=== PATIENT | female | born 1985 | race Caucasian/White ===

== ENCOUNTER → 2019-09-03 14:58 | Outpatient (BNVA) | payer BC, SELFPAY | PROVIDERS: PCP Nurse Practitioner Family; Visit Provider Nurse Practitioner Women's Health | DX: Z01.419 Encounter for gynecological examination (general) (routine) without abnormal findings (principal); Z11.3 Encounter for screening for infections with a predominantly sexual mode of transmission; N76.0 Acute vaginitis; F17.210 Nicotine dependence, cigarettes, uncomplicated; B96.89 Other specified bacterial agents as the cause of diseases classified elsewhere | CPT/HCPCS: 87491; 87591; 87661; 88175 ==

== ENCOUNTER → 2020-09-18 11:27 | Outpatient (BNVA) | payer BC, SELFPAY | PROVIDERS: Visit Provider Nurse Practitioner Women's Health | DX: R30.9 Painful micturition, unspecified (principal) | CPT/HCPCS: 81000; 87086 ==

== ENCOUNTER → 2021-07-08 13:53 | Outpatient (BNVA) | payer BC, SELFPAY | PROVIDERS: Visit Provider Nurse Practitioner | DX: R39.9 Unspecified symptoms and signs involving the genitourinary system (principal) | CPT/HCPCS: 81000 ==

== ENCOUNTER → 2021-07-26 14:09 | Outpatient (BNVA) | payer BC, SELFPAY | PROVIDERS: Visit Provider Nurse Practitioner Women's Health | DX: R30.0 Dysuria (principal); R39.15 Urgency of urination | CPT/HCPCS: 81000; 87086 ==

== ENCOUNTER → 2021-07-30 13:13 | Outpatient (BNVA) | payer BC, SELFPAY | PROVIDERS: Visit Provider Nurse Practitioner Women's Health | DX: N89.8 Other specified noninflammatory disorders of vagina (principal); B96.89 Other specified bacterial agents as the cause of diseases classified elsewhere | CPT/HCPCS: 87491; 87591; 87661 ==

== ENCOUNTER → 2021-10-25 11:46 | Outpatient (BNVA) | payer BC, SELFPAY | PROVIDERS: Visit Provider Nurse Practitioner Family | DX: N39.0 Urinary tract infection, site not specified (principal); B37.3 Candidiasis of vulva and vagina | CPT/HCPCS: 81000 ==

== ENCOUNTER → 2022-05-17 09:52 | Outpatient (BNVA) | payer BC, SELFPAY | PROVIDERS: PCP Family Medicine; Visit Provider Family Medicine | DX: Z00.00 Encounter for general adult medical examination without abnormal findings (principal); Z13.220 Encounter for screening for lipoid disorders; R73.09 Other abnormal glucose; R30.0 Dysuria; Z51.81 Encounter for therapeutic drug level monitoring; M79.671 Pain in right foot | CPT/HCPCS: 80053; 80061; 81000; 83036; 85025; 87086 ==

== ENCOUNTER 2024-11-30 23:11 | Emergency (ER) | payer OTHER, SELFPAY ==
--- NOTE | 2024-11-30 23:14 | ECG_ITS ---
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 Measurements Intervals Buena Rate: 72 P: 78 AZ: 165 QRS: 84 QRSD: 94 T: 65 QT: 364 QTc: 398 Interpretive Statements SINUS RHYTHM No previous ECG available for comparison Electronically Signed On 12-01-2024 21:14:55 CDT by Micha Maharaj M.D. [email or web address] [id number]
[2024-11-30 23:16] VITALS: BP 142/95; PULSE 68; RESP 18; TEMP 36.9; O2SAT 98
--- NOTE | 2024-11-30 23:24 | XRR_ITS ---
PROCEDURE INFORMATION: Exam: XR Chest Exam date and time: 11/30/2024 11:49 PM Age: 39 years old Clinical indication: Chest pressure; Chest pain TECHNIQUE: Imaging protocol: Radiologic exam of the chest. Views: 1 view. COMPARISON: CR XR KUB [id number] 01/02/2019 6:42 PM FINDINGS: Lungs: Unremarkable. No consolidation. Pleural spaces: Unremarkable. No pleural effusion. No pneumothorax. Heart/Mediastinum: Unremarkable. No cardiomegaly. Bones/joints: Unremarkable. XR/XR chest 1V portable [id number] IMPRESSION: No acute findings.
--- NOTE | 2024-11-30 23:44 | W.ED.GENADLT ---
HPI - General Adult General: Chief complaint: Airway/Esophagus Foreign Body Stated complaint: CP Time Seen by Provider: 11/30/24 23:40 Source: patient Mode of arrival: ambulatory Limitations: no limitations History of Present Illness: Patient is a 39-year-old female presents to ED today with a complaint of chest pain. Patient states she swallowed her clindamycin capsule around 9 PM this evening before she went to bed. She states shortly after she woke up and felt like the pill was stuck in her esophagus and states she was having pain and burning. Patient states she was able to drink some water/milk and was able to hold this down but pain persisted. She is not having any neck pain. When she swallows, she is not having any foreign body sensation. She states now her chest pain seems to come and go. She is not having any shortness of breath or difficulty breathing. Onset (ago): hour(s) Severity: mild Quality: burning Pain Consistency: intermittent Relieving factors: none Exacerbating factors: none Associated symptoms: Reports chest pain (seems to come and go); Deny dyspnea, nausea, palpitations, syncope or vomiting Treatments prior to arrival: none Related Data Previous Rx's ?Medication ?Instructions ?Recorded clindamycin HCl 300 mg capsule 300 mg PO BID 7 days #14 caps 11/27/24 Allergies Allergy/AdvReac Type Severity Reaction Status Date / Time azithromycin Allergy Nausea Verified 11/30/24 23:20 cefaclor (From Ceclor) Allergy Hives Verified 11/30/24 23:20 Review of Systems Const: Denies: fever(s) ENMT: Denies: throat pain or odynophagia Card: Reports: chest pain (seems to come and go); Denies: palpitations, irregular heart rhythm, edema, swelling of feet/ankles, lightheadedness, syncope, pre-syncope, dyspnea on exertion, orthopnea, leg pain with exertion or acrocyanosis Resp: Denies: dyspnea GI: Denies: abdominal pain, nausea, vomiting, dysphagia or heartburn Musc: Denies: neck pain PFS ED PFSH: Medical History Recurrent vaginitis Patient denies medical problems Denies history of: High Blood Pressure, Diabetes, Stroke, Heart disease, Thyroid problems, Cancer of the colon, breast, uterus, or ovaries. Surgical History History of tubal ligation 03/26/2014- laparoscopic bilateral tubal fulguration by Dr. Neff at [facility]. Surgery in the postoperative course was uncomplicated. History of removal of ovarian cyst diagnostic laparoscopy for pelvic pain in 2000-reports having a left ovarian cyst removed at this time. Family History Mother Diabetes Thyroid disease Family/Other Breast cancer Mother's cousin--dx age unknown Cancer Great Aunt cervical cancer. Denies family history of Colon cancer Ovarian cancer Heart disease Hypercholesteremia Hypertension Uterine cancer Stroke Physical Exam Const: COMMON NORMALS: no acute distress, average body habitus, patient oriented x3, no limitations, healthy appearing, alert and well nourished Neck/C-Spine: GENERAL: Yes normal visual inspection and Yes other ( normal palpation) Chest: COMMONS NORMALS: normal inspection of the chest and normal palpation of entire chest wall Resp: COMMON NORMALS: normal respiratory effort and clear to auscultation bilaterally AUSCULTATION: clear to auscultation bilaterally Cardio: COMMON NORMALS: regular rate and regular rhythm RATE: regular rate RHYTHM: regular rhythm Neuro: COMMON NORMALS: patient oriented x3 SENSORIUM/ORIENTATION: Yes alert Course Vital Signs: Vital signs: Vital Signs Temperature 98.5 F 11/30/24 23:16 Pulse Rate 63 12/01/24 00:50 Respiratory Rate 14 12/01/24 00:50 Blood Pressure 107/75 12/01/24 00:50 Pulse Oximetry 97 12/01/24 00:50 Oxygen Delivery Me thod Room Air 12/01/24 00:50 [facility] - General Adult Medical Decision Making History most likely consistent with some type of pill esophagitis. She is not having any foreign body sensation when swallowing. She can swallow food or water. She states her chest pain has improved while here and is intermittent. Vital signs stable. She is not having any respiratory symptoms. CXR is unremarkable. Patient will be allowed discharge. Discussed conservative therapies for home. If symptoms persist, she may require further evaluation. Medical Records I reviewed the patient's medical records. XR interpretation done by ED provider, pending radiology final review Discharge Plan Discharge Patient Disposition: Home Clinical Impression: Esophagitis Condition: Stable Prescriptions: No Action clindamycin HCl 300 mg capsule 300 mg PO BID 7 Days Qty: 14 0RF Discharge Orders: Discharge ED (Routine); Ordered 12/01/24 Ordered By: Glenny Trejo Referrals: Joe Olivia MD [Primary Care Provider] - Activity Restrictions/Additional Instructions: As we discussed, you may require the use of medications such as Maalox, Gaviscon, Tums, Pantoprazole, Pepcid/Zantac to help with symptoms over the next week. You need to return to the emergency department for worsening chest pain, shortness of breath, difficulty breathing, trouble swallowing, neck pain, or any other concerns you may have. Print Language: Portuguese Coding Level of Care Code ED Caustics Loader for Olinda Courtney
[2024-12-01] MEDS: lidocaine 2% viscous 15 ML, aluminum-mag hydrox-simethicon 30 ML, sucralfate oral liq 1 GM PO (00:02)
[2024-12-01 00:04] VITALS: BP 132/61; PULSE 64; RESP 15; O2SAT 97
[2024-12-01 00:50] VITALS: BP 107/75; PULSE 63; RESP 14; O2SAT 97
== END 2024-12-01 01:19 | disposition home or self-care (01) ==
PROVIDERS: Emergency Provider Physician Assistant; PCP Family Medicine
DX: K20.90 Esophagitis, unspecified without bleeding (principal)
CPT/HCPCS: 71045; 93005; 99284; J9999

== ENCOUNTER → 2024-12-17 09:38 | Outpatient (BNVA) | payer OTHER, SELFPAY | PROVIDERS: PCP Family Medicine; Visit Provider Nurse Practitioner Women's Health | DX: Z01.419 Encounter for gynecological examination (general) (routine) without abnormal findings (principal) | CPT/HCPCS: 87624 ==

== ENCOUNTER → 2024-12-24 12:30 | Outpatient (BNVA) | payer OTHER, SELFPAY | PROVIDERS: PCP Family Medicine; Visit Provider Nurse Practitioner Women's Health | DX: R10.2 Pelvic and perineal pain (principal); D25.9 Leiomyoma of uterus, unspecified | CPT/HCPCS: 76830 ==

== ENCOUNTER → 2025-02-03 14:00 | Outpatient (BNVA) | payer OTHER, SELFPAY | PROVIDERS: PCP Family Medicine; Visit Provider Obstetrics & Gynecology | DX: R87.619 Unspecified abnormal cytological findings in specimens from cervix uteri (principal) | CPT/HCPCS: 81025; 88305 ==

== ENCOUNTER → 2025-04-01 13:56 | Outpatient (BNVA) | payer OTHER, SELFPAY | PROVIDERS: PCP Family Medicine; Visit Provider Orthopaedic Surgery | DX: M25.562 Pain in left knee (principal); M25.561 Pain in right knee | CPT/HCPCS: 73560; 73565 ==

== ENCOUNTER 2025-04-14 09:18 | Outpatient (CLI) | payer OTHER, SELFPAY ==
--- NOTE | 2025-04-14 09:30 | MR_ITS ---
WS: [id number] MRI LEFT KNEE HISTORY: Left knee pain COMPARISON: Radiograph 04/01/2025 Anterior cruciate ligament: Small amount of fluid along the ACL but no full- thickness tear. Posterior cruciate ligament: Intact. Medial collateral ligament: Superficial MCL is intact. The deep meniscal femoral component is small caliber with increased T2 signal may be from a remote sprain injury. No surrounding edema. Posterior lateral corner structures: Intact. Medial menisci: There is a very small amount of fluid associated with the posterior meniscal root. No tear is identified. Lateral meniscus: Intact. Normal signal, size and shape. Extensor mechanism: Distal quadriceps tendon and patellar tendons are intact. Fluid and soft tissue: No joint effusion. Small Infante's cyst. Osseous and articular structures: Patellofemoral compartment: Normal. Medial compartment: Mild narrowing of the medial compartment. Acute medial tibial plateau nondisplaced fracture with a large amount of surrounding edema. Fracture does not seem to extend to the articular surface but through the metaphysis. Fracture extends to the midline and also towards the base of the tibial spines. Marrow signal is in contact with the curvilinear fluid noted involving the posterior medial meniscal root. No there may be very minimal loss of height involving the medial tibial plateau. No displacement. Lateral compartment: Small amount of marrow edema crosses from the medial tibial plateau towards the lateral metaphysis. Minimal narrowing lateral compartment. MR/MR knee LT wo con* [id number] IMPRESSION: 1. Medial tibial plateau fracture with minimal depression. Fracture extends th rough the metaphysis with edema extending slightly across the midline to the la teral tibial metaphysis. 2. Small amount of fluid associated with the posterior medial meniscal root. T his signal abnormality in the meniscal root is in contact with the marrow signa l abnormality. No definite meniscal tear identified. 3. Small amount of fluid along the ACL but no tear. 4. Small Infante's cyst.
== END 2025-04-14 09:19 | disposition home or self-care (01) ==
LOC: RAD 09:19
PROVIDERS: PCP Family Medicine; Visit Provider Orthopaedic Surgery
DX: S82.142A Displaced bicondylar fracture of left tibia, initial encounter for closed fracture (principal); M71.22 Synovial cyst of popliteal space [Baker], left knee; X58.XXXA Exposure to other specified factors, initial encounter
CPT/HCPCS: 73721

== ENCOUNTER → 2025-04-22 15:03 | Outpatient (BNVA) | payer OTHER, SELFPAY | PROVIDERS: PCP Family Medicine; Visit Provider Orthopaedic Surgery | DX: Z01.818 Encounter for other preprocedural examination (principal) | CPT/HCPCS: 36415; 80053; 81001; 85025 ==

== ENCOUNTER → 2025-05-06 08:46 | Outpatient (BNVA) | payer OTHER, SELFPAY | PROVIDERS: PCP Family Medicine; Visit Provider Family Medicine | DX: Z01.818 Encounter for other preprocedural examination (principal) | CPT/HCPCS: 85007; 85027 ==

== ENCOUNTER 2025-05-13 05:47 | Day surgery (SDC) | payer OTHER, SELFPAY ==
[2025-05-13] VITALS (11 sets, daily range): BP systolic 98–143; BP diastolic 65–89; PULSE 61–81; RESP 16–18; TEMP 36.2–36.9; O2SAT 95–100
[2025-05-13 06:01] LABS: OR HCG Qualitative Urine Negative (Negative)
--- NOTE | 2025-05-13 06:49 | P.ANESASSM_ITS ---
Pre-Anesthetic Assessment Height/Weight: Height 1.57 m Weight 61.689 kg Temp Pulse Resp BP Pulse Ox O2 Del Method 98.4 F 78 16 143/78 99 Room Air 05/13/25 06:00 05/13/25 06:00 05/13/25 06:00 05/13/25 06:00 05/13/25 06:00 05/13/25 06:00 Preop Diagnosis: left knee pain Operation Date: 05/13/25 07:00 Proposed Procedures p Left knee arthroscopy with meniscus repair(Left) - Serafin Bowen MD Was Beta Sascha taken within 24 hours: N/A Was Clonidine taken within 24 hours: N/A Last intake: Intake Last Liquid Date 05/12/25 Last Liquid Time 21:30 Last Solid Date 05/12/25 Last Solid Time 21:30 Social Tobacco 1ppd pack(s) per day 15 years pack years Exam alert and oriented x 3 Airway Submandibular: within normal limits Cervical ROM: within normal limits Mallampati: Class I Dentition: full History/ROS No significant history except as noted Pulmonary None reported CV/HEM None reported None reported Hepatic None reported GI None reported Metabolic None reported Musc/skel None reported Neuropsych Anxiety Anesthetic Plan ASA status: 2 Anesthesia: General Risk of > 500 ml blood loss (7ml/kg in children): No Medications/Allergies Home Medications ?Medication ?Instructions ?Recorded ?Confirmed ?Last Taken ?Type norethindrone acetate 5 mg tablet 5 mg PO DAILY 05/13/25 05/12/25 History metronidazole 500 mg tablet 500 mg PO BID 7 days #14 t abs 05/06/25 05/13/25 05/12/25 Rx Allergies Allergy/AdvReac Type Severity Reaction Status Date / Time azithromycin Allergy Nausea Verified 05/12/25 15:27 cefaclor (From Ceclor) Allergy Hives Verified 05/12/25 15:27 Current Medications Generic Name Dose Route Start Last Admin Trade Name Freq PRN Reason Stop Dose Admin Sodium Chloride 1,000 mls @ 30 mls/hr 05/13/25 06:00 05/13/25 06:10 Sodium Chloride 0.9% IV 05/14/25 05:59 30 mls/hr .Q24H DIONE Administration PFSH Anesthesia Medical History Recurrent vaginitis Patient denies medical problems Denies history of: High Blood Pressure, Diabetes, Stroke, Heart disease, Thyroid problems, Cancer of the colon, breast, uterus, or ovaries. Surgical History History of tubal ligation 03/26/2014- laparoscopic bilateral tubal fulguration by Dr. Neff at [facility]. Surgery in the postoperative course was uncomplicated. History of removal of ovarian cyst diagnostic laparoscopy for pelvic pain in 2000-reports having a left ovarian cyst removed at this time. Family History Mother Diabetes Thyroid disease Family/Other Breast cancer Mother's cousin--dx age unknown Cancer Great Aunt cervical cancer. Denies family history of Colon cancer Ovarian cancer Heart disease Hypercholesteremia Hypertension Uterine cancer Stroke Social History Smoking and tobacco/nicotine status: current every day tobacco/nicotine user Female Reproductive History Date of last menstrual period: 05/05/25
--- NOTE | 2025-05-13 07:12 | W.PM.OPSUD ---
Surgery/Procedure H&P Update DATE OF PROCEDURE: May 13, 2025 DATE H&P PERFORMED: 04/22/25 CHANGES TO PREVIOUS DOCUMENTATION: Medical evaluation was done by Dr. Vizcarra on 05/06/2025 PREOP DIAGNOSIS: left knee pain PRIMARY INDICATION FOR PROCEDURE: Internal derangement left knee PLANNED PROCEDURE: Operation Date: 05/13/25 07:00 Proposed Procedures p Left knee arthroscopy with meniscus repair(Left) - Serafin Bowen MD
[2025-05-13] MEDS: BUPivacaine 0.5% INJ 30 mL XX (08:11)
--- NOTE | 2025-05-13 08:19 | P.OP_ITS ---
Operative Report Date of procedure: May 13, 2025 Surgeon: Serafin Bowen MD Procedure: Preoperative diagnosis: Internal derangement of the left knee possible posterior horn medial meniscal tear Postoperative diagnosis: Torn posterior horn medial meniscal tear of left knee Procedure: Diagnostic left knee arthroscopy with partial medial meniscectomy of the posterior horn Surgeon: Serafin Bowen MD Anesthesia: General EBL: None Indications: Monalisa is a 39-year-old white female who is referred to the orthopedic clinic for debilitating left knee pain. Original injury she has tripped over a pallet fell on both knees. She had bilateral knee pain but right knee seem to resolve somewhat. However left knee continue to be painful and difficult. On clinical exam she had positive findings for possible posterior horn medial meniscal tear. Subsequent MRI indicated possible root tear of the posterior horn medial meniscus as well as possible tibial plateau fracture in the area. No other abnormalities/pathology was identified. Patient then offered a diagnostic left knee arthroscopy after failing all conservative measures to try and heal her left knee. All risk benefits treatment alternatives were discussed with her and she was agreeable to this at this time. Procedure: After obtaining her consent patient was taken to the operating room placed on the operative table supine position general anesthetic administered. Once good anesthesia was achieved patient's left leg was placed in a leg schwartz and the foot the bed was dropped. Right leg was padded out appropriately. Left leg was prepped and draped in the usual fashion. After surgical timeout standard anterior medial and lateral portals were made with #11 blade. Camera cannula placed through the lateral portal into her knee was undertaken. Po sterior patella was in good repair. Medial gutter was clear. Medial compartment initially appeared to be normal however probing the posterior horn/1/3 of the medial meniscus a undersurface longitudinal tear was identified. However root was not damaged at this time. Using small hand instruments and mechanical shaver a partial medial meniscectomy was then taken to debride the meniscal tear. Remainder of the medial compartment was in good repair. Intercondylar notch demonstrated an ACL that appeared to be laying quite flat however function of it still was good. Referencing back to the MRI there is no indication of an ACL tear. There is no bleeding into the soft tissues around there are evidence of it recently. Lateral compartment demonstrated normal articular surfaces as well as normal meniscus. Knee was then washed this copious amounts sterile irrigation. Cannulas removed. Wounds closed with 3-0 Prolene interrupted sutures. Wounds injected with half percent Marcaine plain for postoperative pain management totaling 30 cc. Wounds cleaned and dry dressed Xeroform gauze sterile gauze dressing Kerlix wrap and Blas wrap for compression. Patient was awakened transferred to cover room in stable condition
[2025-05-13] MEDS: fentaNYL 50 mcg/mL INJ 2mL IVP ×2 (08:30→08:35)
[2025-05-13] MEDS: HYDROcodone-acetaminophen 5-325 mg Tablet 1 TAB PO (09:07)
--- NOTE | 2025-05-13 09:50 | ANE.PACU2 ---
Inpatient post-anesthesia follow up: Airway intact: Yes Vital signs: Temperature 97.2 F Pulse Rate 70 Respiratory Rate 16 Blood Pressure 121/89 Pulse Oximetry 97 Oxygen Delivery Me thod Room Air Oxygen Flow Rate 8 Fraction of Inspir ed Oxygen Hydration adequate: Yes Nausea and vomiting: No Pain level: 1 Mental status: Baseline
== END 2025-05-13 09:50 | disposition home or self-care (01) ==
PROVIDERS: Anesthesiology; PCP Family Medicine; Visit Provider Orthopaedic Surgery
PROC: (CPT 29881; principal; 2025-05-13 07:00)
DX: M23.92 Unspecified internal derangement of left knee (principal); S83.242A Other tear of medial meniscus, current injury, left knee, initial encounter; X58.XXXA Exposure to other specified factors, initial encounter; F41.9 Anxiety disorder, unspecified; Z87.891 Personal history of nicotine dependence
CPT/HCPCS: 29881; 81025; J1100; J2250; J2405; J2704; J3010; J3490; J7030; J9999

== ENCOUNTER 2025-05-17 15:46 | Emergency (ER) | payer OTHER, SELFPAY ==
--- OUTSIDE RECORDS SUMMARY | 2025-05-17 15:50 | XMS_ITS | Encounter Summary ---
Author Organization [facility] [facility] Address [address] 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
--- OUTSIDE RECORDS SUMMARY | 2025-05-17 15:50 | XMS_ITS | Encounter Summary ---
Author Organization [facility] Address [address] [place] [address] Care Team Providers Care Foiling Machine Adjuster Name Role Phone Unavailable Primary Care Provider Unavailabl e Encounter Details Date Type Department Care Team (Latest Contact Info) Description 12/18/2000 Outpatient Historical [facility] [place] [address] [place] [phone] Naun Tinajero MD Abdominal pain, right upper quadrant (Primary Dx) Social History Tobacco Use Types Packs/Day Years Used Date Smoking Tobacco: Never Assessed Comments Unknown Sex and Gender Information Value Date Recorded Sex Assigned at Not on file 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
--- OUTSIDE RECORDS SUMMARY | 2025-05-17 15:50 | XMS_ITS | Clinical Summary ---
Author Organization [employer] [facility] Address [address] 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
--- OUTSIDE RECORDS SUMMARY | 2025-05-17 15:50 | XMS_ITS | Encounter Summary ---
Author Organization [facility] Address [address] [place] [address] Care Team Providers Care Product Representative Name Role Phone Unavailable Primary Care Provider Unavailabl e Encounter Details Date Type Department Care Team (Latest Contact Info) Description 01/01/2001 Outpatient Historical [facility] [place] [address] [place] [phone] Naun Tinajero MD Abdominal pain, unspecified site (Primary Dx) Social History Tobacco Use Types Packs/Day Years Used Date Smoking Tobacco: Never Assessed Comments Unknown Sex and Gender Information Value Date Recorded Sex Assigned at Not on file 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
[2025-05-17 15:52] VITALS: BP 147/88; PULSE 67; RESP 17; TEMP 37.1; O2SAT 98; BMI 23.8
--- NOTE | 2025-05-17 16:07 | USR_ITS ---
PROCEDURE INFORMATION: Exam: US Duplex Left Lower Extremity Veins, Limited Exam date and time: 05/17/2025 4:23 PM Age: 39 years old Clinical indication: Pain; Leg, upper and leg, lower; Left; Prior surgery; Surgery date: 3-7 days post-operative; Surgery type: Miniscus repair 05/13/2025; Additional info: Left-sided calf pain and swelling concern for dvt TECHNIQUE: Imaging protocol: Real-time duplex ultrasound of the left extremity with 2-D arcos scale, color Doppler flow and spectral waveform analysis including responses to compression and other maneuvers (when performed) with image documentation. Limited exam focused on the left lower extremity veins. COMPARISON: MR knee LT wo con* [id number] 04/14/2025 9:32 AM FINDINGS: Left deep veins: Unremarkable. The common femoral, femoral, proximal profunda femoral and popliteal veins are patent without thrombus. Normal Doppler waveforms. Normal compressibility and/or augmentation response. Superficial veins: Greater saphenous vein at the saphenofemoral junction is patent without thrombus. Soft tissues: Unremarkable. US/CV venous duplex [facility] [id number] IMPRESSION: No evidence of deep vein thrombosis in the left lower extremity.
--- NOTE | 2025-05-17 16:17 | ED_ITS ---
HPI - Extremity Problem General: Chief complaint: Extremity Injury, Lower Stated complaint: LT knee History of Present Illness: 39-year-old female who had a recent surg albina with Dr. Bowen. She had a meniscal repair. She says when she had been getting up she has been having redness and pain with swelling in her leg. She was told to come to the emergency room to rule out DVT. No chest pain. No shortness of breath. No tachycardia. No hypoxemia. Related Data Home Medications ?Medication ?Instructions ?Recorded ?Confirmed norethindrone acetate 5 mg tablet 5 mg PO DAILY 05/13/25 Previous Rx's ?Medication ?Instructions ?Recorded metronidazole 500 mg tablet 500 mg PO BID 7 days #14 t abs 05/06/25 hydrocodone 5 mg-acetaminophen 325 1 tab PO Q6H PRN pa in #30 tabs 05/13/25 mg tablet Allergies Allergy/AdvReac Type Severity Reaction Status Date / Time azithromycin Allergy Nausea Verified 05/12/25 15:27 cefaclor (From [facility]) Allergy Hives Verified 05/12/25 15:27 Review of Systems Narrative: Constitutional symptoms: Negative except as documented in HPI. Skin symptoms: Negative except as documented in HPI. Eye symptoms: Negative except as documented in HPI. ENMT symptoms: Negative except as documented in HPI. Respiratory symptoms: Negative except as documented in HPI. Cardiovascular symptoms: Negative except as documented in HPI. Gastrointestinal symptoms: Negative except as documented in HPI. Genitourinary symptoms: Negative except as documented in HPI. Musculoskeletal symptoms: Negative except as documented in HPI. Neurologic symptoms: Negative except as documented in HPI. Psychiatric symptoms: Negative except as documented in HPI. Endocrine symptoms: Negative except as documented in HPI. PFSH ED PFSH: Medical History (Updated 05/17/25 @ 16:42 by Margarette Su MD) Recurrent vaginitis Patient denies medical problems Denies history of: High Blood Pressure, Diabetes, Stroke, Heart disease, Thyroid problems, Cancer of the colon, breast, uterus, or ovaries. Surgical History History of tubal ligation 03/26/2014- laparoscopic bilateral tubal fulguration by Dr. Neff at [facility]. Surgery in the postoperative course was uncomplicated. History of removal of ovarian cyst diagnostic laparoscopy for pelvic pain in 2000-reports having a left ovarian cyst removed at this time. Family History Mother Diabetes Thyroid disease Family/Other Breast cancer Mother's cousin--dx age unknown Cancer Great Aunt cervical cancer. Denies family history of Colon cancer Ovarian cancer Heart disease Hypercholesteremia Hypertension Uterine cancer Stroke Social History Smoking and tobacco/nicotine status: current every day tobacco/nicotine user Physical Exam Narrative: EXAM NARRATIVE: General: Alert, no acute distress. Skin: Warm, dry. Head: Normocephalic, atraumatic. Neck: Supple, trachea midline. Eye: Extraocular movements are intact. Ears, nose, mouth and throat: mucosa moist. Cardiovascular: Regular, Normal peripheral perfusion. Respiratory: Lungs are clear to auscultation, respirations are non-labored, breath sounds are equal, Symmetrical chest wall expansion. Gastrointestinal: Soft, Nontender, Non distended Musculoskeletal: Minimal swelling or pain to the calf at this point. She states usually gets when she stands up. Sutures appear clean dry and intact. Neurological: Alert and oriented, No focal neurological deficit observed. Psychiatric: Cooperative, appropriate mood & affect. Course Vital Signs: Vital signs: Vital Signs Temperature 98.8 F 05/17/25 15:52 Pulse Rate 59 L 05/17/25 16:25 Respiratory Rate 16 05/17/25 16:25 Blood Pressure 109/89 05/17/25 16:25 Pulse Oximetry 97 05/17/25 16:25 Oxygen Delivery Me thod Room Air 05/17/25 16:25 MDM - Extremity (Nontraumatic) Medical Decision Making Medical decision making: Differential diagnosis including but not limited to and based on the above HPI, review of systems and physical exam: This post surgical patient with pain in her calf does seem appropriate to have an ultrasound to rule out DVT. Orders placed to evaluate differential diagnosis based on the above differential, HPI and physical exam Ultrasound of the lower extremity: No DVT. This was reviewed and interpreted by myself the emergency room physician. I also reviewed the radiology report. Reexamination: Patient remained stable. No increased work of breathing. No altered mental status. No focal motor deficits. Assessment and plan: Postoperative leg pain - Discharged home - Discussed plan with patient. Answered any questions. - Evaluation and treatment of this problem were appropriate in the emergency setting. All radiology interpretation(s) finalized by discharge Discharge Plan Discharge Patient Disposition: Home Clinical Impression: Postoperative pain Condition: Stable Prescriptions: No Action norethindrone acetate 5 mg tablet 5 mg PO DAILY metronidazole 500 mg tablet 500 mg PO BID 7 Days Qty: 14 0RF hydrocodone-acetaminophen 5-325 mg tablet 1 tab PO Q6H PRN (Reason: pain) Qty: 30 0RF Discharge Orders: Discharge ED (Routine); Ordered 05/17/25 Ordered By: Margarette Su Referrals: Joe Olivia MD [Primary Care Provider, [facility]] Discharge Diet: As Directed Discharge Activity: Increase activity as tolerated Patient Instructions: Opioid Safety, Pain Management, Patient Portal & Hcris Instructions Activity Restrictions/Additional Instructions: Thank you for choosing [facility] for your healthcare needs today. You have been screened and evaluated and felt safe for discharge. Health conditions do change or evolve sometimes and as such it is important that you follow up with your Primary Doctor to be re checked, 3-5 days is a general good time frame for follow up. You are always welcome to return to the ED for re assessment if your symptoms are worsening or you have new concerns Print Language: Greek Coding Level of Care Code ED Crystal Inspector for Olinda Courtney
[2025-05-17 16:25] VITALS: BP 109/89; PULSE 59; RESP 16; O2SAT 97
[2025-05-17 16:48] VITALS: BP 129/71; PULSE 69; O2SAT 96
== END 2025-05-17 16:59 | disposition home or self-care (01) ==
PROVIDERS: Emergency Provider Emergency Medicine; PCP Family Medicine
DX: G89.18 Other acute postprocedural pain (principal); M25.562 Pain in left knee; Z72.0 Tobacco use; Z98.890 Other specified postprocedural states
CPT/HCPCS: 93971; 99284

== ENCOUNTER 2025-06-24 12:38 | Outpatient (RCR) | payer OTHER, SELFPAY | END 2025-07-20 23:59 | disposition home or self-care (01) | LOC: SPT 12:38 | PROVIDERS: Visit Provider Orthopaedic Surgery | DX: M25.562 Pain in left knee (principal); M25.561 Pain in right knee | CPT/HCPCS: 97110; 97161; 97530 ==

== ENCOUNTER 2025-07-21 05:00 | Outpatient (RCR) | payer OTHER, SELFPAY | END 2025-08-07 08:45 | disposition home or self-care (01) | LOC: SPT 05:00 | PROVIDERS: Visit Provider Orthopaedic Surgery | DX: M25.562 Pain in left knee (principal); M25.561 Pain in right knee | CPT/HCPCS: 97110; 97112; 97530 ==

== ENCOUNTER 2025-07-31 13:05 | Outpatient (CLI) | payer OTHER, SELFPAY ==
--- NOTE | 2025-07-31 13:15 | XR_ITS ---
WS: [id number] XR foot RT min 3V* [id number] REASON FOR EXAM: Right foot pain at the base of the 4th toe FINDINGS: No fracture or focal bone lesion. No periosteal reaction or bone erosion. The joint spaces of the forefoot, midfoot, and hindfoot are intact and well preserved. XR/XR foot RT min 3V* [id number] IMPRESSION: No significant bone or joint abnormality.
== END 2025-07-31 13:06 | disposition home or self-care (01) ==
PROVIDERS: PCP Family Medicine; Visit Provider Family Medicine
DX: M79.671 Pain in right foot (principal)
CPT/HCPCS: 73630